=== PATIENT | male | born 1955 | race Caucasian/White ===

== ENCOUNTER 2016-10-25 14:55 | Emergency (ER) | payer BC ==
[2016-10-25 15:27] VITALS: BP 124/69
--- NOTE | 2016-10-25 15:35 | UC ---
General HPI - HPI Summary HPI Summary: complaint of tick bites that he found this morning unsure of how long they were attached has had lyme disease 4 times in the last year PCP is Dr Eng patient has afib as is worried about not getting treated - History of Current Complaint Chief Complaint: [employer] Stated Complaint: TICKS Time Seen by Provider: 10/25/16 14:57 Hx Obtained From: Patient - Allergy/Home Medications Allergies/Adverse Reactions: Allergies Allergy/AdvReac Type Severity Reaction Status Date / Time No Known Allergies Allergy Verified 07/30/14 12:57 PMH/Surg Hx/FS Hx/Imm Hx Previously Healthy: Yes Cardiovascular History: Hypertension, Atrial Fibrillation Other History Of: Anticoagulant Therapy - Surgical History Surgical History: Yes Surgery Procedure, Year, and Place: Hernia repair 2000, Rib removed left side ( 7th) at age 12, vasectomy - Family History Known Family History: Positive: None Negative: Cardiac Disease, Hypertension, Diabetes - Social History Occupation: Employed Full-time Lives: With Family Alcohol Use: Daily Alcohol Amount: BEER AND WINE Substance Use Type: None Smoking Status (MU): Never Smoked Tobacco Review of Systems Constitutional: Negative Skin: Rash Eyes: Negative ENT: Negative Respiratory: Negative Cardiovascular: Negative Gastrointestinal: Negative Genitourinary: Negative Motor: Negative Neurovascular: Negative Musculoskeletal: Negative Neurological: Negative Psychological: Negative All Other Systems Reviewed And Are Negative: Yes Physical Exam Triage Information Reviewed: Yes Appearance: No Pain Distress, Well-Nourished, Thin Vital Signs: Initial Vital Signs Temp 98.6 F 10/25/16 15:23 Pulse 112 10/25/16 15:23 Resp 18 10/25/16 15:23 BP 124/69 10/25/16 15:23 Pulse Ox 99 10/25/16 15:23 Vital Signs Reviewed: Yes Eyes: Positive: Conjunctiva Clear ENT: Positive: Pharynx normal, TMs normal Neck: Positive: No Lymphadenopathy Respiratory: Positive: Lungs clear, Normal breath sounds, No respiratory distress Cardiovascular: Positive: RRR, No Murmur, Pulses Normal, Brisk Capillary Refill Musculoskeletal: Positive: No Edema Neurological: Positive: Alert Psychological Exam: Normal Skin: Positive: rashes - RUE- two 6x6mm areas of erythema on forearm Course/Dx - Course Course Of Treatment: exam completed. will treat with prophylactic dose of doxycycline and followup with PCP - Differential Dx - Multi-Symptom Differential Diagnoses: Other - insect bites, tick bite, cellulitis Provider Diagnoses: tick bites Discharge - Discharge Plan Condition: Stable Disposition: HOME Prescriptions: DOXYcycline CAP(*) [DOXYcycline 100MG CAP(*)] 100 mg PO BID #2 cap Patient Education Materials: Tick Bite (ED) Referrals: Chetan Sorenson MD [Primary Care Provider] - Additional Instructions: Please start antibiotic as directed Increase fluids and rest Take acetaminophen or ibuprofen for fever or pain Please review your discharge instructions. If your symptoms do not improve please call your primary care provider or return to urgent care.
== END 2016-10-25 15:48 | disposition home or self-care (01) ==
LOC: UCEAST 14:55
DX: S50.861A Insect bite (nonvenomous) of right forearm, initial encounter (principal); W57.XXXA Bitten or stung by nonvenomous insect and other nonvenomous arthropods, initial encounter; Y93.9 Activity, unspecified; Y92.89 Other specified places as the place of occurrence of the external cause; Y99.9 Unspecified external cause status; I48.91 Unspecified atrial fibrillation; Z79.01 Long term (current) use of anticoagulants; I10 Essential (primary) hypertension
CPT/HCPCS: 99212; G0463